=== PATIENT | male | born 1985 | race African-American/Black ===

== ENCOUNTER 2019-11-12 12:42 | Outpatient (CLI) | payer OTHER ==
--- NOTE | 2019-11-17 09:05 | MRI Report ---
PROCEDURE: Lumbar Spine W/O INDICATIONS: Low back pain TECHNIQUE: Noncontrast sagittal T1 spin echo and T2 fast echo, sagittal STIR, axial T1 and T2 fast spin echo thr ough the lumbar spine. In cases with scoliosis, additional coronal T2 fast spin echo may be performe d. COMPARISON: None. FINDINGS: Image quality: Excellent. Alignment and Curvature: There is normal bony alignment. Bone Marrow: Marrow is of normal overall signal. No acute vertebral body compression fractures. Spinal Cord: Conus medullaris terminates at the normal level. Visualized cord demonstrates normal s ignal and size. Paraspinous Soft Tissues: No paravertebral masses. T12-L1: Normal in appearance. L1-L2: Normal in appearance. L2-L3: Normal in appearance. L3-L4: Normal in appearance. L4-L5: Mild disc desiccation and height loss. There is mild circumferential disc bulge without mass effect upon the descending L5 nerve roots within the spinal canal. There is also a disc protrusion in the left foraminal and far left lateral zones, with disc material displacing the exiting/traversin g left L4 nerve root (best appreciated on image 12 of series 601 and series 701 along with image 1 of series 301). L5-S1: Mild disc desiccation and height loss. Disc protrusion in the central and left paracentral zon es without mass effect upon the traversing S1 nerve roots. No neural foraminal stenosis. IMPRESSION: 1. Degenerative changes at L4-L5 and L5-S1. 2. Disc protrusion at L4-L5 on the left, resulting in displacement L4 nerve root within the lateral a spect of the left L4-L5 neural foramen, and also outside of the foramen in the far lateral zone. Luis Alberto elate for any corresponding left L4 radicular symptoms. Reviewed by: Dino Guy MD on 11/17/2019 9:03 AM PDT Approved by: Dino Guy MD on 11/17/2019 9:03 AM PDT Station ID: [id number]
== END 2019-11-12 12:43 | disposition home or self-care (01) ==
LOC: DI 12:42
PROVIDERS: ATTEND General Practice
DX: M51.36 Other intervertebral disc degeneration, lumbar region (principal); M51.37 Other intervertebral disc degeneration, lumbosacral region; M51.26 Other intervertebral disc displacement, lumbar region; M51.27 Other intervertebral disc displacement, lumbosacral region
CPT/HCPCS: 72148